=== PATIENT | male | born 1940 | race Caucasian/White ===

== ENCOUNTER 2021-03-21 09:19 | Inpatient (IN) | payer OTHER ==
[~2021-03-21] VITALS: Ht 172.7 cm; Wt 111.1 kg
--- NOTE | ~2021-03-21 | EMS ---
[address] [address] EMS Patient Care Report Name: VINH MENJIVAR Room #: 453-P [facility] IN M.R.#: [id number] Admission: 03/21/21 Attend Phys: Jose M Blackburn Discharge: 03/23/21 Date of : 36 Report #: [id number] THIS REPORT FOR: //name// Report Transmitted: 03/26/2021 12:13 EMS Care Summary [place], [place]/[facility] Incident [id number] @ 03/21/2021 08:38 Incident Location [address] [place], [place] [id number] Patient VINH MENJIVAR Male, 80 Years 1940 Patient Address [address] [place] [address] Patient History Congestive Heart Failure (CHF),Hypertension (HTN), Patient Allergies Lisinopril, Patient Medications Furosemide, Aspirin, Ropinirole, Trazodone, Amlodipine, Losartan, Acetaminophen, Chief Complaint DARK BLOOD IN STOOL Disposition Transported No Lights/[place] Dispatch Reason Hemorrhage/Laceration Transported To [facility] Narrative UPON ARRIVAL PT SITTING UPRIGHT IN CHAIR CONSCIOUS AND ALERT. PT NOTICED SOME DARK RD BLOOD IN STOOL LAST NIGHT AND THEN HAS NOTICED MORE THIS MORNING. PT IS [address] [address] EMS Patient Care Report Name: VINH MENJIVAR Room #: 453-P DIS IN M.R.#: [id number] Admission: 03/21/21 Attend Phys: Jose M Blackburn Discharge: 03/23/21 Date of : 38 Report #: [id number] HAVING VERY LIGHT ABD PAIN AND IS FEELING WEAKER THAN NORMAL. PT HAD BEEN CONSTIPATED FOR 5 DAYS THAT ENDED 1-2 DAYS AGO AND WAS TAKING A LOT OF STOOL SOFTENERS AND PEPTO DURING THAT TIME. PT ASSISTED TO COT AND TRANSPORTED. Initial Vitals @09:11P: 91,CO: 0,SpO2: 93, @09:01P: 91,R: 20,BP: 131/86,Pain: 2/10,GCS: 15,CO: 0,SpO2: 99,Revised Trauma: 12, @09:14P: 87,R: 20,BP: 127/78,GCS: 15,CO: 0,SpO2: 94,Revised Trauma: 12, Assessments @08:55MENTAL:Time Oriented,Event Oriented,Person Oriented,Place Oriented,SKIN:Pale,HEENT:Head/Face: No Abnormalities,Neck/Airway: No Abnormalities,LUNG SOUNDS:General: Diarrhea,ABDOMEN:General: Diarrhea,PELVIS//GI:Rectal Bleeding,EXTREMITIES:Left Arm: No Abnormalities,Right Arm: No Abnormalities,Left Leg: No Abnormalities,Right Leg: No Abnormalities,PULSE:Radial: 2+ Normal,NEURO:No Abnormalities, Impression Gastrointestinal hemorrhage Procedures @08:55 ALS Assessment Response: UnchangedSucceeded @09:03 3-Lead ECG Response: UnchangedSucceeded Timeline 08:36,Call Received 08:36,Dispatch Notified 08:38,Dispatched 08:39,En Route 08:52,On Scene 08:54,At Patient 08:55,ALS Assessment,Response: UnchangedSucceeded, 09:01,BP: 131/86 M,PULSE: 91,RR: 20 R,SPO2: 99 Ox,ETCO2: ,BG: ,PAIN: 2,GCS: 15, 09:02,Depart Scene 09:03,3-Lead ECG,Response: UnchangedSucceeded, 09:11,BP: / M,PULSE: 91,RR: R,SPO2: 93 Ox,ETCO2: ,BG: ,PAIN: ,GCS: , 09:14,BP: 127/78 M,PULSE: 87,RR: 20 R,SPO2: 94 Ox,ETCO2: ,BG: ,PAIN: ,GCS: 15, 09:16,At Destination 09:28,Call Closed Disclaimer v1.1 Copyright 2021 [employer] This EMS Care Summary contains data elements from the applicable legal record (which may be displayed differently). It [place] [address] EMS Patient Care Report Name: VINH MENJIVAR Room #: 453-P DIS IN M.R.#: [id number] Admission: 03/21/21 Attend Phys: Jose M Blackburn Discharge: 03/23/21 Date of : 38 Report #: [id number] information for the following purposes: continuity of care, clinical quality, and state data reporting. The complete legal record is available to ED staff and administrators of the receiving hospital in [facility]'s Patient Tracker. All data is provided "as is."
--- NOTE | ~2021-03-21 | EMS ---
[address] [address] EMS Patient Care Report Name: VINH MENJIVAR Room #: PRE M.R.#: [id number] Admission: Attend Phys: Discharge: Date of : 36 Report #: [id number] THIS REPORT FOR: //name// Report Transmitted: 03/21/2021 08:53 EMS Care Summary [place], [place]/[facility] Incident [id number] @ 03/21/2021 08:38 Incident Location [address] [place] [address] Patient VINH MENJIVAR Male, 80 Years 1940 Patient Address [address] [place] [address] Patient History Congestive Heart Failure (CHF),Hypertension (HTN), Patient Allergies Lisinopril, Patient Medications Furosemide, Aspirin, Ropinirole, Trazodone, Amlodipine, Losartan, Acetaminophen, Chief Complaint DARK BLOOD IN STOOL Disposition Transported No Lights/[place] Dispatch Reason Hemorrhage/Laceration Transported To [facility] Narrative UPON ARRIVAL PT SITTING UPRIGHT IN CHAIR CONSCIOUS AND ALERT. PT NOTICED SOME DARK RD BLOOD IN STOOL LAST NIGHT AND THEN HAS NOTICED MORE THIS MORNING. PT IS [address] [address] EMS Patient Care Report Name: VINH MENJIVAR Room #: PRE MBrunilda.#: [id number] Admission: Attend Phys: Discharge: Date of : 36 Report #: [id number] HAVING VERY LIGHT ABD PAIN AND IS FEELING WEAKER THAN NORMAL. PT HAD BEEN CONSTIPATED FOR 5 DAYS THAT ENDED 1-2 DAYS AGO AND WAS TAKING A LOT OF STOOL SOFTENERS AND PEPTO DURING THAT TIME. PT ASSISTED TO COT AND TRANSPORTED. Initial Vitals @09:11P: 91,CO: 0,SpO2: 93, @09:01P: 91,R: 20,BP: 131/86,Pain: 2/10,GCS: 15,CO: 0,SpO2: 99,Revised Trauma: 12, @09:14P: 87,R: 20,BP: 127/78,GCS: 15,CO: 0,SpO2: 94,Revised Trauma: 12, Assessments @08:55MENTAL:Place Oriented,Person Oriented,Event Oriented,Time Oriented,SKIN:Pale,HEENT:Head/Face: No Abnormalities,Neck/Airway: No Abnormalities,LUNG SOUNDS:General: Diarrhea,ABDOMEN:General: Diarrhea,PELVIS//GI:Rectal Bleeding,EXTREMITIES:Left Arm: No Abnormalities,Right Arm: No Abnormalities,Left Leg: No Abnormalities,Right Leg: No Abnormalities,PULSE:Radial: 2+ Normal,NEURO:No Abnormalities, Impression Gastrointestinal hemorrhage Procedures @08:55 ALS Assessment Response: UnchangedSucceeded @09:03 3-Lead ECG Response: UnchangedSucceeded Timeline 08:36,Call Received 08:36,Dispatch Notified 08:38,Dispatched 08:39,En Route 08:52,On Scene 08:54,At Patient 08:55,ALS Assessment,Response: UnchangedSucceeded, 09:01,BP: 131/86 M,PULSE: 91,RR: 20 R,SPO2: 99 Ox,ETCO2: ,BG: ,PAIN: 2,GCS: 15, 09:02,Depart Scene 09:03,3-Lead ECG,Response: UnchangedSucceeded, 09:11,BP: / M,PULSE: 91,RR: R,SPO2: 93 Ox,ETCO2: ,BG: ,PAIN: ,GCS: , 09:14,BP: 127/78 M,PULSE: 87,RR: 20 R,SPO2: 94 Ox,ETCO2: ,BG: ,PAIN: ,GCS: 15, 09:16,At Destination 09:28,Call Closed Disclaimer v1.1 Copyright 2021 [employer] This EMS Care Summary contains data elements from the applicable legal record (which may be displayed differently). It is designed to provide pertinent [address] [place] [address] EMS Patient Care Report Name: TIARAVINH Room #: PRE M.R.#: [id number] Admission: Attend Phys: Discharge: Date of : 36 Report #: [id number] information for the following purposes: continuity of care, clinical quality, and state data reporting. The complete legal record is available to ED staff and administrators of the receiving hospital in [employer]'s Patient Tracker. All data is provided "as is."
[2021-03-21 09:20] VITALS: BP 103/66
[2021-03-21 09:47] LABS: ABSOLUTE NEUTROPHILS 4.1 thou/uL (1.4-8.2); BASOPHILS 1.3 % (0.0-2.0); EOSINOPHILS 1.6 % (0.0-3.0); HEMATOCRIT 26.1 % (42.0-52.0); HEMOGLOBIN 8.8 gm/dL (14.0-18.0); LYMPHOCYTES 23.6 % (24.0-44.0); MCH 32.2 pg (26.0-34.0); MCHC 33.5 g/dL (28.0-37.0); MCV 95.9 fL (80.0-100.0); PLATELET COUNT 196 thou/uL (150-400); POLYS 62.5 % (36.0-66.0); RBC 2.72 mil/uL (4.50-6.00); RDW 15.1 % (10.5-14.5); WBC 6.6 thou/uL (4.0-11.0)
[2021-03-21 09:53] LABS: CALCIUM 8.9 mg/dL (8.5-10.1); POTASSIUM 3.8 mmol/L (3.5-5.1)
[2021-03-21 09:59] LABS: ALBUMIN 2.7 g/dL (3.4-5.0); TOTAL BILIRUBIN 0.5 mg/dL (0.2-1.0); TOTAL PROTEIN 5.7 g/dL (6.4-8.2)
[2021-03-21] MEDS ORDERED: NORVASC5 MG PO (14:34)
[2021-03-21] MEDS ORDERED: LASIX 40 MG TAB40 MG PO (14:34)
[2021-03-21] MEDS ORDERED: COZAAR 50 MG TA50 MG PO (14:35)
[2021-03-21] MEDS ORDERED: REQUIP 1 MG TABL1 M1 PO (14:35)
[2021-03-21 15:57] VITALS: BP 132/90
[2021-03-21 16:05] VITALS: BP 114/63
--- NOTE | 2021-03-21 16:07 | NUR ---
PT ADMITTED RELATED TO GI BLEED. CM REVIEWED CHART AND SPOKE WITH CARE TEAM. CM ATTEMPTED PC TO PT'S CELL BUT NO ANSWER. CM CALLED PT'S JORDAN AND SHE INDICATED THAT THEY JUST MOVED INTO THE [facility] ON THURSDAY. SHE INDICATED THEY HAD BEEN LIVING IN A HOUSE IN [place] TO THIS. IT WAS INDICATED THAT PT'S DTR IN LAW DORY [phone] AND DTR FERNANDO [phone] ARE ALSO GOOD CONTACTS. THEY INDICATED THAT PT HAS A FWW AND 4WW FOR USE AT HOME. THEY STATED THAT PT HAD BEEN INDEPDNENT WITH ADLS APPOINTMENT SPECIALIST. PT SAT TO BRUSH TEETH AND SHOWER. PT HAD TRIED [facility] IN PAST BUT STOPPED B/C THEY DIDN'T COME WHEN THEY INDICATED THEY WOULD. PT TO HAVE BLEEDING SCAN TODAY AND EGD TOMORROW. PT'S FAMILY HOPE THAT HE WILL BE ABLE TO RETURN TO THE [facility] ONCE MEDICALLY STABLE. CM FOLLOWING.
--- NOTE | 2021-03-21 17:06 | NUR ---
A RIGHT DOUBLE LUMEN PICC WAS PLACED IN THE BASILIC VEIN PER HOSPITAL POLICY AFTER A BEDSIDE TIMEOUT WAS COMPLETED. THE LINE WAS TRIMMED TO 45CM AND ADVANCED TO 1CM EXTERNAL. THE LINE WAS CONFIRMED WITH [employer] AT 1 CM EXTERNAL. THE LINE IS RELEASED FOR USE
[2021-03-21 18:09] VITALS: BP 117/76
[2021-03-21 19:13] VITALS: BP 118/79
[2021-03-22 03:05] VITALS: BP 119/58
--- NOTE | 2021-03-22 05:39 | NUR ---
Pt. has been up most of the night due to bowel prep. He has been having black looae stools from bowel prep. He c/o nausea and zofran given with some relief (see emar). No c/o pain. Pt. currently resting quietly in the bed.
[2021-03-22 05:46] LABS: ABSOLUTE NEUTROPHILS 4.3 thou/uL (1.4-8.2); BASOPHILS 1.3 % (0.0-2.0); EOSINOPHILS 4.7 % (0.0-3.0); HEMOGLOBIN 8.7 gm/dL (14.0-18.0); LYMPHOCYTES 21.4 % (24.0-44.0); MCH 32.7 pg (26.0-34.0); MCHC 34.7 g/dL (28.0-37.0); MCV 94.3 fL (80.0-100.0); MONOCYTES 14.3 % (1.0-8.0); PLATELET COUNT 164 thou/uL (150-400); POLYS 58.3 % (36.0-66.0); RBC 2.65 mil/uL (4.50-6.00); WBC 7.5 thou/uL (4.0-11.0)
[2021-03-22 05:49] LABS: CALCIUM 7.8 mg/dL (8.5-10.1); CREATININE 0.9 mg/dL (0.7-1.3); POTASSIUM 3.3 mmol/L (3.5-5.1)
[2021-03-22 05:53] LABS: ALBUMIN 2.7 g/dL (3.4-5.0); PHOSPHORUS 2.4 mg/dL (2.5-4.9)
[2021-03-22 07:13] VITALS: BP 110/63
--- NOTE | 2021-03-22 09:59 | EKG ---
[place] [address] [facility] [place] [address] ELECTROCARDIOGRAM REPORT Name: VINH MENJIVAR Room #: 453-P ADM IN M.R.#: [id number] Admission: 03/21/21 Attend Phys: Jose M Blackburn Discharge: Date of : 38 Report #: [id number] [facility] Test Date: 2021-03-21 Test Time: 18:59:05 Pat Name: VINH MENJIVAR Department: Room: [facility] Gender: M Cellophane Tester: LISA : 1940 Requested By: Frederick North Order Number: [id number] MD: Chito Noguera Measurements Intervals [place] Rate: 78 P: 27 WY: 165 QRS: 3 QRSD: 108 T: 43 QT: 411 QTc: 469 Interpretive Statements Sinus rhythm Abnormal R-wave progression, early transition Baseline wander in lead(s) V1 No previous ECG available for comparison Electronically Signed On 03-22-2021 9:58:39 PAPER SPOOLER by Chito Noguera [email or web address] <ELECTRONICALLY SIGNED> By: Chito Noguera MD, [facility] 03/22/21 0958 1859 1859 Chito Noguera MD, FACC /EPI
[2021-03-22 12:28] VITALS: BP 91/52
[2021-03-22 15:10] VITALS: BP 96/45
--- NOTE | 2021-03-22 16:05 | NUR ---
PT HAD EGD/COLONOSCOPY THIS DAY. ERIC CALELD AND PROVIDED PT'S DTR IN LAW FREEDOM WITH UPDATE. CARE TEAM INDICATED THAT PT WILL LIKELY BE MEDICALLY STABLE TO DISCHARGE BACK TO THE [facility] TOMORROW Thursday03/23/21 HOME TO SELF CARE. NO HH INDICATED BY PHYSICIAN. PT'S FAMILY EXPRESSED UNDERSTANDING. ERIC CALLED AND SPOKE WITH NURSE AT THE [facility] AND NOTIFIED THEM OF LIKELY RETURN TOMORROW. ERIC FAXED CLINICAL UPDATE. BRIANNA FAX ORDERS TO AND REQUEST A CAHRT COPY PRIOR TO DC. PT'S FAMILY TO TRANSPORT HOME ONCE READY.
[2021-03-22 19:10] VITALS: BP 129/72
--- NOTE | 2021-03-23 04:23 | NUR ---
Pt. rested quietly at intervals during the night when checked on during frequent rounds. He offers no c/o pain. No active bloody stools. Bed alarm is on.
[2021-03-23 07:42] VITALS: BP 116/59
[2021-03-23 08:31] LABS: HEMATOCRIT 22.2 % (42.0-52.0); HEMOGLOBIN 7.4 gm/dL (14.0-18.0); MCH 32.6 pg (26.0-34.0); MCHC 33.5 g/dL (28.0-37.0); MCV 97.2 fL (80.0-100.0); RBC 2.28 mil/uL (4.50-6.00); RDW 15.2 % (10.5-14.5)
[2021-03-23] MEDS ORDERED: PROTONIX 20 MG20 M1 PO (09:43)
[2021-03-23 09:56] VITALS: BP 116/59
--- NOTE | 2021-03-23 11:22 | NUR ---
PT DISCHARGING TODAY BACK TO THE [facility] FAXED DC ORDERS/SUMMARY TO FACILITY RECEIVED CONFIRMATION. FAMILY TO TRANSPORT PT TO HIS AL.
[2021-03-23 11:31] VITALS: BP 116/59
--- NOTE | 2021-03-23 11:32 | NUR ---
ASSUMED CARE OF PT AT 0700. GAVE PT ALL PRNS AVAILABLE. FLUSH AND JOSEPH LABS FROM [facility] PORT. HUNG NEW IV FLUIDS. VITAL SIGNS WNL. PT AMBULATED TO BATHROOM - UP AD CANDY. FAMILY VISITING. STATED NO PHONE IN ROOM/THERMOSTAT NOT WORKING. WILL ADDRESS BOTH.
--- NOTE | 2021-03-23 11:35 | NUR ---
ASSUMED CARE OF PT AT 0700. RESTING COMFORTABLY. NO COMPLAINTS. ALL VITAL SIGNS WNL. HELPED PT GET DRESSED AND GIVEN HARD COPY OF PX. PT DISCHARGING HOME. NO FURTHER MONITORING REQUIRED.
--- NOTE | 2021-03-23 11:36 | NUR ---
D/C PICC LINE AT 1130 TODAY.
[2021-03-23] MEDS ORDERED: BIPAP MISCELL (16:59)
[2021-03-23] MEDS ORDERED: OXYGEN MISCELL (16:59)
[2021-03-23] MEDS ORDERED: SINGULAIR 10 MG10 M1 PO (21:56)
[2021-03-23] MEDS ORDERED: COLACE100 MG PO (21:57)
[2021-03-23] MEDS ORDERED: DESYREL150 MG PO (21:57)
--- NOTE | 2021-03-26 12:07 | PATH ---
[facility] [address] [place] [address] PATHOLOGY RPT PROCEDURE Name: VINH SWEENEY Room #: 453-P DIS IN M.R.#: [id number] Admission: 03/21/21 Date of : 36 Discharge: 03/23/21 Report #: [id number] Path Case #: [id number] [facility] Accession Number: [id number] . 01 Material submitted: . stomach - ANTRUM OF STOMACH BIOPSY- R/O H. PYLORI . 01 Clinical history: . EGD GI BLEEDING DIVERTICULOSIS, DUODENUM ULCER, INTERNAL HEMORRHOIDS . 02 Diagnosis: Stomach "antrum", biopsy: - Gastric antral mucosa with features of chronic gastritis. - Negative for active inflammation, intestinal metaplasis, dysplasia, and malignancy. - Negative for Helicobacter pylori. (LUTHER:don; 03/25/2021) QTP 03/25/2021 1630 Local . 02 Electronically signed: . Neeraj Stearns MD, Pathologist NPI- [id number] . 01 Gross description: . The specimen is received in formalin, labeled "Vinh Sweeney, antrum of stomach biopsy, rule out H. pylori". Received are 2 segments of pale prakash tissue measuring 0.2 and 0.4 cm in maximum dimensions. The specimen is entirely submitted in cassette A1. ([facility]; 03/22/2021) NRI/NRI 03/22/2021 1838 Local . 02 Microscopic: . Immunohistochemical stain results (properly controlled) Helicobacter pylori (A1) - Negative for organisms. (MLK:pit; 03/25/2021) . 02 Pathologist provided ICD-10: K29.50 . 02 CPT . 803406, [id number] Specimen Comment: A courtesy copy of this report has been sent to [phone], [phone] Specimen Comment: [phone] Specimen Comment: Report sent to / [place] [address] PATHOLOGY RPT PROCEDURE Name: VINH SWEENEY Room #: 453-P DIS IN .R.#: [id number] Admission: 03/21/21 Date of : 36 Discharge: 03/23/21 Report #: [id number] Path Case #: [id number] Specimen Comment: A duplicate report has been generated due to demographic updates. Performed at: 01 [facility] Eliane Silverio [address], [place], [place] [id number] MD Jatinder Tubbs MD Phone: [phone] Performed at: [address] [id number] MD Miles Bradshaw MD Phone: [phone]
== END 2021-03-23 12:15 | disposition home or self-care (01) | DRG 377 ==
LOC: ER 09:19 → 4W 13:02 → EROBS 13:02 → 4W 17:36
PROVIDERS: Emergency Medicine; ADMIT Hospitalist; ATTEND Hospitalist
DX: K26.4 Chronic or unspecified duodenal ulcer with hemorrhage (principal); E43 Unspecified severe protein-calorie malnutrition; D62 Acute posthemorrhagic anemia; K29.71 Gastritis, unspecified, with bleeding; Z20.822 Contact with and (suspected) exposure to COVID-19; K57.31 Diverticulosis of large intestine without perforation or abscess with bleeding; E66.9 Obesity, unspecified; G89.29 Other chronic pain; J45.909 Unspecified asthma, uncomplicated; G25.81 Restless legs syndrome; I50.9 Heart failure, unspecified; I11.0 Hypertensive heart disease with heart failure; K52.9 Noninfective gastroenteritis and colitis, unspecified; K76.0 Fatty (change of) liver, not elsewhere classified; K44.9 Diaphragmatic hernia without obstruction or gangrene; K64.8 Other hemorrhoids; Z88.8 Allergy status to other drugs, medicaments and biological substances; Z83.3 Family history of diabetes mellitus; Z68.37 Body mass index [BMI] 37.0-37.9, adult; Z86.010 Personal history of colon polyps; Z79.1 Long term (current) use of non-steroidal anti-inflammatories (NSAID)
CPT/HCPCS: 10040; 27000; 62110; 62900; 70005

== ENCOUNTER 2021-03-23 17:29 | Inpatient (IN) | payer OTHER ==
[~2021-03-23] VITALS: Ht 172.7 cm; Wt 136.5 kg
[~2021-03-23 17:29] MED LIST: BIPAP MISCELL; COZAAR 50 MG TA50 MG PO; LASIX 40 MG TAB40 MG PO; NORVASC5 MG PO; OXYGEN MISCELL; PROTONIX 20 MG20 M1 PO; REQUIP 1 MG TABL1 M1 PO
[2021-03-23 17:39] VITALS: BP 97/55
[2021-03-23 19:21] LABS: ABSOLUTE NEUTROPHILS 4.6 thou/uL (1.4-8.2); BASOPHILS 1.2 % (0.0-2.0); EOSINOPHILS 8.4 % (0.0-3.0); HEMATOCRIT 26.3 % (42.0-52.0); HEMOGLOBIN 8.6 gm/dL (14.0-18.0); MCH 31.7 pg (26.0-34.0); MCHC 32.5 g/dL (28.0-37.0); MCV 97.4 fL (80.0-100.0); MONOCYTES 11.9 % (1.0-8.0); PLATELET COUNT 179 thou/uL (150-400); POLYS 61.5 % (36.0-66.0); RDW 15.4 % (10.5-14.5); WBC 7.4 thou/uL (4.0-11.0)
[2021-03-23 19:28] LABS: CREATININE 0.9 mg/dL (0.7-1.3); POTASSIUM 3.7 mmol/L (3.5-5.1)
[2021-03-23 19:35] LABS: ALBUMIN 2.8 g/dL (3.4-5.0); TOTAL BILIRUBIN 0.3 mg/dL (0.2-1.0); TOTAL PROTEIN 5.9 g/dL (6.4-8.2)
[2021-03-23] MEDS ORDERED: SINGULAIR 10 MG10 M1 PO (21:56)
[2021-03-23] MEDS ORDERED: DESYREL150 MG PO (21:57)
[2021-03-23] MEDS ORDERED: COLACE100 MG PO (21:57)
[2021-03-24 05:55] LABS: HEMATOCRIT 25.7 % (42.0-52.0); MCH 32.4 pg (26.0-34.0); RBC 2.46 mil/uL (4.50-6.00); RDW 16.8 % (10.5-14.5); WBC 4.4 thou/uL (4.0-11.0)
[2021-03-24 05:56] LABS: CREATININE 0.8 mg/dL (0.7-1.3); POTASSIUM 3.6 mmol/L (3.5-5.1)
[2021-03-24 05:57] LABS: MCV 104.7 fL (80.0-100.0)
[2021-03-24 07:51] VITALS: BP 93/57
[2021-03-24 11:50] VITALS: BP 107/56
[2021-03-24 16:05] VITALS: BP 112/61
[2021-03-24 19:38] VITALS: BP 114/62
--- NOTE | 2021-03-25 07:31 | EKG ---
[address] [place] [address] ELECTROCARDIOGRAM REPORT Name: VINH MENJIVAR Room #: 434-P ADM IN M.R.#: [id number] Admission: 03/23/21 Attend Phys: Zen Haro MD Discharge: Date of : 36 Report #: [id number] [facility] ED Test Date: 2021-03-23 Test Time: 19:23:17 Pat Name: VINH MENJIVAR Department: Room: 434 P Gender: M Teacher Cclc: : 1940 Requested By: Dm Faulkner Order Number: [id number] : Chito Noguera Measurements Intervals [place] Rate: 81 P: IA: QRS: 21 QRSD: 112 T: 39 QT: 395 QTc: 459 Interpretive Statements NSR Borderline intraventricular conduction delay Abnormal R-wave progression, early transition Compared to ECG 03/21/2021 18:59:05 Sinus rhythm Electronically Signed On 03-25-2021 7:31:01 PROPERTY INSURANCE INSPECTOR by Chito Noguera [email or web address] <ELECTRONICALLY SIGNED> By: Chito Noguera MD, [facility] 03/25/21730 22 22 Chito Noguera MD, FACC /EPI
[2021-03-25 07:35] VITALS: BP 98/55
[2021-03-25 10:42] VITALS: BP 98/55
[2021-03-25 15:48] VITALS: BP 98/55
[2021-03-25] MEDS ORDERED: OXYGEN MISCELL (16:10)
== END 2021-03-25 16:10 | disposition home or self-care (01) | DRG 189 ==
LOC: ER 17:29 → 4S 20:27 → EROBS 20:27 → 4S 03-24 08:39
PROVIDERS: Nurse Practitioner Family; Physician Assistant; ADMIT Hospitalist; ATTEND Hospitalist
PROC: 05HY33Z Insertion of Infusion Device into Upper Vein, Percutaneous Approach (ICD-10-PCS; principal; 2021-03-23)
PROC: 5A09357 Assistance with Respiratory Ventilation, Less than 24 Consecutive Hours, Continuous Positive Airway Pressure (ICD-10-PCS; 2021-03-24)
DX: J81.0 Acute pulmonary edema (principal); J96.21 Acute and chronic respiratory failure with hypoxia; Z68.42 Body mass index [BMI] 45.0-49.9, adult; D64.9 Anemia, unspecified; J98.6 Disorders of diaphragm; G47.33 Obstructive sleep apnea (adult) (pediatric); Z20.822 Contact with and (suspected) exposure to COVID-19; J45.909 Unspecified asthma, uncomplicated; I50.9 Heart failure, unspecified; E66.9 Obesity, unspecified; I95.9 Hypotension, unspecified; E87.70 Fluid overload, unspecified; I11.0 Hypertensive heart disease with heart failure; R53.81 Other malaise; K21.9 Gastro-esophageal reflux disease without esophagitis; Z86.010 Personal history of colon polyps; Z88.8 Allergy status to other drugs, medicaments and biological substances; Z87.891 Personal history of nicotine dependence; Z82.5 Family history of asthma and other chronic lower respiratory diseases
CPT/HCPCS: 10100